=== PATIENT | male | born 1935 | race Caucasian/White ===

== ENCOUNTER → 2017-01-26 | Outpatient (CLI) | payer MEDICARE, BC ==
[2015-11-15 06:42] VITALS: BP 115/64
[~2017-01-26] MED LIST: ALEVE 220MG220 MG PO; ALLOPURINOL100 MG PO; BACTRIM DS 8001 TAB PO; CETIRIZINE PO; CHILDREN'S ASPI81 M1 PO; COLACE 100100 MG/CAP PO; CRESTOR20 MG PO; DIABETA2.5 MG PO; DURAGESIC50 MCG/PAT TD; EYE VITAMIN-MI1 EACH PO; FENTANYL 75MCG TP; FLOMAX 0.40.4 MG/CAP PO; LEXAPRO20 M1 PO; MIRALAX PA17 GM/Dose PO; MIRALAX17 GM PO; MS CONTIN 115 MG/TAB PO; MS CONTIN 330 MG/TAB PO; NAPROSYN PO; NORCO 325 MG-51 TA1 PO; OXYCODONE PO; PLAVIX 75MG TAB75 MG PO; TYLENOL 325MG325 MG PO
== END ==
LOC: LAB 14:00
DX: E11.9 Type 2 diabetes mellitus without complications (principal); E78.2 Mixed hyperlipidemia; Z87.39 Personal history of other diseases of the musculoskeletal system and connective tissue

== ENCOUNTER 2017-04-04 20:41 | Emergency (ER) | payer MEDICARE, BC ==
[~2017-04-04] VITALS: Ht 172.7 cm; Wt 95.0 kg
[2017-04-04] MEDS ORDERED: NORCO 325 MG-7.1 TA1 PO (23:29)
[2017-04-04] MEDS ORDERED: CYCLOBENZAPRINE10 M1 PO (23:29)
[2017-04-04 23:56] VITALS: BP 159/89
== END 2017-04-04 23:56 | disposition home or self-care (01) ==
LOC: ED 20:41
DX: M48.56XA Collapsed vertebra, not elsewhere classified, lumbar region, initial encounter for fracture (principal); M48.54XA Collapsed vertebra, not elsewhere classified, thoracic region, initial encounter for fracture; E11.9 Type 2 diabetes mellitus without complications; M10.9 Gout, unspecified; I69.954 Hemiplegia and hemiparesis following unspecified cerebrovascular disease affecting left non-dominant side; M48.061 Spinal stenosis, lumbar region without neurogenic claudication; G83.4 Cauda equina syndrome; G89.29 Other chronic pain
CPT/HCPCS: J1170; J2360; J2405

== ENCOUNTER → 2017-12-01 | Outpatient (CLI) | payer MEDICARE, BC ==
[~2017-12-01] MED LIST changes: +CYCLOBENZAPRINE10 M1 PO; +NORCO 325 MG-7.1 TA1 PO
[2017-12-01 08:20] LABS: URINE APPEARANCE HAZY; URINE COLOR YELLOW
[2017-12-01 08:21] LABS: URINE BILIRUBIN NEGATIVE (NEGATIVE); URINE BLOOD NEGATIVE (NEGATIVE); URINE GLUCOSE NEGATIVE (NEGATIVE); URINE KETONE NEGATIVE (NEGATIVE); URINE LEUKOCYTE ESTERASE NEGATIVE (NEGATIVE); URINE MUCUS PRESENT (NOT PRESENT); URINE NITRATE NEGATIVE (NEGATIVE); URINE PROTEIN(semi-quant) NEGATIVE (NEGATIVE); URINE UROBILINOGEN NORMAL (NORMAL)
== END ==
LOC: LAB 11-30 16:04
PROVIDERS: Nurse Practitioner Family
DX: R10.9 Unspecified abdominal pain (principal); N39.0 Urinary tract infection, site not specified

== ENCOUNTER → 2017-12-14 | Outpatient (CLI) | payer MEDICARE, BC ==
[2017-12-14 16:49] LABS: BUN/CREATININE RATIO 22.3 (6.0-26.0); CALCIUM 9.6 mg/dL (8.4-10.2); POTASSIUM 4.1 mmol/L (3.6-5.0)
== END ==
LOC: LAB 16:12
PROVIDERS: Nurse Practitioner Family
DX: E11.9 Type 2 diabetes mellitus without complications (principal); M54.5 Low back pain

== ENCOUNTER → 2018-03-31 | Outpatient (CLI) | payer MEDICARE, BC ==
[2018-03-31 11:58] LABS: BASO # 0.1 (0.02-0.10); EOS # 0.2 (0.04-0.40); HEMATOCRIT 46.7 % (42.0-52.0); HEMOGLOBIN 15.6 g/dL (13.5-18.0); MEAN CELL VOLUME 91 fl (78-100); MEAN CORPUSCULAR HEMOGLOBIN 30 pg (27-31); MEAN CORPUSCULAR HGB CONC 33 g/dL (33-37); MEAN PLATELET VOLUME 9.7 fl (7.4-10.4); MONO # 0.4 (0.20-0.80); NEU # 3.7 (1.40-6.50); PLATELET COUNT 215 K/mm3 (130-400); RED BLOOD COUNT 5.14 M/mm3 (4.20-5.60); RED CELL DISTRIBUTION WIDTH 12.8 % (11.5-14.5); WHITE BLOOD COUNT 5.5 K/mm3 (4.8-10.8)
[2018-03-31 12:33] LABS: ALBUMIN 4.5 g/dL (3.5-5.0); CALCIUM 9.3 mg/dL (8.4-10.2); POTASSIUM 4.3 mmol/L (3.6-5.0); TOTAL BILIRUBIN 0.8 mg/dL (0.2-1.3); TOTAL PROTEIN 7.3 g/dL (6.3-8.2)
== END ==
LOC: LAB 11:26
PROVIDERS: Physician Assistant
DX: Z12.5 Encounter for screening for malignant neoplasm of prostate (principal); Z00.00 Encounter for general adult medical examination without abnormal findings; E11.9 Type 2 diabetes mellitus without complications; I63.9 Cerebral infarction, unspecified; M19.90 Unspecified osteoarthritis, unspecified site; M10.9 Gout, unspecified

== ENCOUNTER 2019-02-24 08:11 | Observation (INO) | payer MEDICARE, BC ==
[~2019-02-24] VITALS: Ht 175.3 cm; Wt 94.1 kg
[2019-02-24 08:37] LABS: BASO # 0.1 (0.02-0.10); EOS # 0.2 (0.04-0.40); EOS % 3.8 % (0.0-4.0); HEMATOCRIT 43.7 % (42.0-52.0); HEMOGLOBIN 14.5 g/dL (13.5-18.0); MEAN CELL VOLUME 92 fl (78-100); MEAN CORPUSCULAR HEMOGLOBIN 30 pg (27-31); MEAN CORPUSCULAR HGB CONC 33 g/dL (33-37); MEAN PLATELET VOLUME 9.7 fl (7.4-10.4); MONO # 0.4 (0.20-0.80); NEU # 3.6 (1.40-6.50); PLATELET COUNT 190 K/mm3 (130-400); RED BLOOD COUNT 4.77 M/mm3 (4.20-5.60); RED CELL DISTRIBUTION WIDTH 12.9 % (11.5-14.5); WHITE BLOOD COUNT 5.2 K/mm3 (4.8-10.8)
[2019-02-24 08:43] LABS: ALBUMIN 3.9 g/dL (3.4-4.8); POTASSIUM 3.8 mmol/L (3.5-5.1)
[2019-02-24 08:45] LABS: CALCIUM 9.6 mg/dL (8.3-10.5)
[2019-02-24 08:46] LABS: TOTAL PROTEIN 6.7 g/dL (6.2-8.1)
[2019-02-24 08:48] LABS: TOTAL BILIRUBIN 0.8 mg/dL (0.2-1.2)
[2019-02-24] MEDS ORDERED: MECLIZINE PO (09:57)
[2019-02-24 11:35] LABS: URINE APPEARANCE CLEAR; URINE COLOR YELLOW
[2019-02-24 11:36] LABS: URINE BILIRUBIN NEGATIVE (NEGATIVE); URINE BLOOD NEGATIVE (NEGATIVE); URINE GLUCOSE NEGATIVE (NEGATIVE); URINE KETONE NEGATIVE (NEGATIVE); URINE LEUKOCYTE ESTERASE NEGATIVE (NEGATIVE); URINE MUCUS PRESENT (NOT PRESENT); URINE NITRATE NEGATIVE (NEGATIVE); URINE PROTEIN(semi-quant) TRACE mg/dL (NEGATIVE); URINE UROBILINOGEN NORMAL (NORMAL)
[2019-02-24] MEDS ORDERED: OCUVITE ADULT1 EAC1 PO (13:31)
[2019-02-24 13:59] VITALS: BP 107/79
[2019-02-24 15:33] VITALS: BP 119/71
[2019-02-24 19:19] VITALS: BP 118/79
[2019-02-24 23:00] VITALS: BP 111/72
[2019-02-25 02:58] VITALS: BP 116/68
[2019-02-25 06:21] VITALS: BP 121/78
== END 2019-02-25 08:51 | disposition other institution (70) ==
LOC: ED 08:11 → MED/SURG 11:31
PROVIDERS: ADMIT Nurse Practitioner Primary Care
DX: S22.42XA Multiple fractures of ribs, left side, initial encounter for closed fracture (principal); M10.9 Gout, unspecified; E11.9 Type 2 diabetes mellitus without complications; I69.954 Hemiplegia and hemiparesis following unspecified cerebrovascular disease affecting left non-dominant side; M19.90 Unspecified osteoarthritis, unspecified site; Z79.02 Long term (current) use of antithrombotics/antiplatelets; Z87.891 Personal history of nicotine dependence; Z88.0 Allergy status to penicillin; W19.XXXA Unspecified fall, initial encounter
CPT/HCPCS: G0378; J1885; J2270

== ENCOUNTER 2019-02-25 08:25 | Inpatient (IN) | payer MEDICARE, BC ==
[~2019-02-25 08:25] MED LIST changes: +MECLIZINE PO; +OCUVITE ADULT1 EAC1 PO
[2019-02-25 11:28] VITALS: BP 139/71
[2019-02-25 11:31] VITALS: BP 129/71
[2019-02-25 15:00] VITALS: BP 122/87
[2019-02-25 19:13] VITALS: BP 134/70
[2019-02-25 23:07] VITALS: BP 117/42
[2019-02-25 23:08] VITALS: BP 117/42
[2019-02-26] VITALS (7 sets, daily range): BP systolic 109–133; BP diastolic 61–786
[2019-02-27 02:52] VITALS: BP 135/79
[2019-02-27 06:20] VITALS: BP 130/77
[2019-02-27 11:30] VITALS: BP 120/70
[2019-02-27 15:15] VITALS: BP 128/76
[2019-02-27 18:52] VITALS: BP 116/66
[2019-02-27 23:46] VITALS: BP 154/79
[2019-02-28 03:25] VITALS: BP 132/86
[2019-02-28 06:03] VITALS: BP 113/63
[2019-02-28 06:49] LABS: BASO # 0.1 (0.02-0.10); EOS # 0.3 (0.04-0.40); HEMATOCRIT 36.9 % (42.0-52.0); HEMOGLOBIN 12.4 g/dL (13.5-18.0); LYMPH# 1.1 (1.50-4.00); MEAN CELL VOLUME 92 fl (78-100); MEAN CORPUSCULAR HEMOGLOBIN 31 pg (27-31); MEAN CORPUSCULAR HGB CONC 34 g/dL (33-37); MEAN PLATELET VOLUME 10.2 fl (7.4-10.4); MONO # 0.5 (0.20-0.80); NEU # 2.8 (1.40-6.50); PLATELET COUNT 185 K/mm3 (130-400); RED CELL DISTRIBUTION WIDTH 12.5 % (11.5-14.5); WHITE BLOOD COUNT 4.7 K/mm3 (4.8-10.8)
[2019-02-28 07:03] LABS: ALBUMIN 3.1 g/dL (3.4-4.8); POTASSIUM 4.3 mmol/L (3.5-5.1)
[2019-02-28 07:05] LABS: CALCIUM 8.5 mg/dL (8.3-10.5)
[2019-02-28 07:06] LABS: TOTAL PROTEIN 5.4 g/dL (6.2-8.1)
[2019-02-28 07:08] LABS: TOTAL BILIRUBIN 0.5 mg/dL (0.2-1.2)
[2019-02-28 07:13] LABS: EOS % 5.6 % (0.0-4.0)
[2019-02-28 11:00] VITALS: BP 114/63
[2019-02-28] MEDS ORDERED: FLOMAX0.4 MG PO (11:54)
[2019-02-28] MEDS ORDERED: BENADRYL PO (11:54)
[2019-02-28] MEDS ORDERED: DICLOFENAC SOD100 GM TP (11:54)
[2019-02-28] MEDS ORDERED: MORPHINE 10M10 MG/ML IV (11:55)
[2019-02-28] MEDS ORDERED: HEALTHYLAX17 GM/Dose PO (11:56)
[2019-02-28] MEDS ORDERED: Lidocaine 4% Patch TP (11:56)
[2019-02-28] MEDS ORDERED: SENNA-TIME S 501 TAB PO (11:56)
== END 2019-02-28 12:30 | disposition swing bed (61) | DRG 185 ==
LOC: MED/SURG 08:25
PROVIDERS: Family Medicine; ADMIT Physician Assistant
DX: S22.42XA Multiple fractures of ribs, left side, initial encounter for closed fracture (principal); W18.30XA Fall on same level, unspecified, initial encounter; Y92.009 Unspecified place in unspecified non-institutional (private) residence as the place of occurrence of the external cause; M10.9 Gout, unspecified; E11.9 Type 2 diabetes mellitus without complications; I69.234 Monoplegia of upper limb following other nontraumatic intracranial hemorrhage affecting left non-dominant side; M19.90 Unspecified osteoarthritis, unspecified site; F03.90 Unspecified dementia, unspecified severity, without behavioral disturbance, psychotic disturbance, mood disturbance, and anxiety; E78.5 Hyperlipidemia, unspecified; R53.81 Other malaise; Z87.891 Personal history of nicotine dependence; Z88.0 Allergy status to penicillin
CPT/HCPCS: J2270; J7030; J7070

== ENCOUNTER 2019-02-28 01:55 | Inpatient (IN) | payer MEDICARE, BC ==
[~2019-02-28] VITALS: Ht 170.2 cm; Wt 99.5 kg
[2019-02-28] MEDS ORDERED: BENADRYL PO (11:54)
[2019-02-28] MEDS ORDERED: DICLOFENAC SOD100 GM TP (11:54)
[2019-02-28] MEDS ORDERED: FLOMAX0.4 MG PO (11:54)
[2019-02-28] MEDS ORDERED: MORPHINE 10M10 MG/ML IV (11:55)
[2019-02-28] MEDS ORDERED: HEALTHYLAX17 GM/Dose PO (11:56)
[2019-02-28] MEDS ORDERED: Lidocaine 4% Patch TP (11:56)
[2019-02-28] MEDS ORDERED: SENNA-TIME S 501 TAB PO (11:56)
[2019-02-28 15:58] VITALS: BP 114/74
[2019-02-28 17:54] LABS: BASO # 0.1 (0.02-0.10); EOS # 0.2 (0.04-0.40); EOS % 4.3 % (0.0-4.0); HEMATOCRIT 41.2 % (42.0-52.0); HEMOGLOBIN 13.6 g/dL (13.5-18.0); LYMPH# 1.2 (1.50-4.00); MEAN CELL VOLUME 92 fl (78-100); MEAN CORPUSCULAR HEMOGLOBIN 30 pg (27-31); MEAN CORPUSCULAR HGB CONC 33 g/dL (33-37); MEAN PLATELET VOLUME 10.1 fl (7.4-10.4); MONO # 0.5 (0.20-0.80); NEU # 3.3 (1.40-6.50); PLATELET COUNT 203 K/mm3 (130-400); RED BLOOD COUNT 4.49 M/mm3 (4.20-5.60); RED CELL DISTRIBUTION WIDTH 12.7 % (11.5-14.5); WHITE BLOOD COUNT 5.3 K/mm3 (4.8-10.8)
[2019-02-28 18:00] LABS: ALBUMIN 3.8 g/dL (3.4-4.8); POTASSIUM 3.5 mmol/L (3.5-5.1)
[2019-02-28 18:01] LABS: CALCIUM 9.4 mg/dL (8.3-10.5)
[2019-02-28 18:02] LABS: TOTAL PROTEIN 6.4 g/dL (6.2-8.1)
[2019-02-28 18:04] LABS: TOTAL BILIRUBIN 0.5 mg/dL (0.2-1.2)
[2019-02-28 19:15] VITALS: BP 157/89
[2019-03-01 06:06] VITALS: BP 144/82
[2019-03-01 18:30] VITALS: BP 128/74
[2019-03-02 05:53] VITALS: BP 146/79
[2019-03-02 18:18] VITALS: BP 144/73
[2019-03-03 05:50] VITALS: BP 164/83
[2019-03-03 18:35] VITALS: BP 97/59
[2019-03-04 05:49] VITALS: BP 135/79
[2019-03-04 18:43] VITALS: BP 125/74
[2019-03-05 06:11] VITALS: BP 131/75
[2019-03-05 18:00] VITALS: BP 107/69
[2019-03-06 05:26] VITALS: BP 142/66
[2019-03-06 18:09] VITALS: BP 114/72
[2019-03-07 06:01] VITALS: BP 129/82
[2019-03-07 18:00] VITALS: BP 122/72
[2019-03-08 05:57] VITALS: BP 123/75
[2019-03-08 17:58] VITALS: BP 121/65
[2019-03-09 06:13] VITALS: BP 125/58
[2019-03-09] MEDS ORDERED: FLOMAX0.4 MG PO (11:27)
[2019-03-09] MEDS ORDERED: DICLOFENAC SOD100 GM TP (11:28)
== END 2019-03-09 14:26 | disposition home health service (06) | DRG 560 ==
LOC: MED/SURG 01:55
PROVIDERS: ADMIT Family Medicine
DX: S22.42XD Multiple fractures of ribs, left side, subsequent encounter for fracture with routine healing (principal); I69.359 Hemiplegia and hemiparesis following cerebral infarction affecting unspecified side; W19.XXXD Unspecified fall, subsequent encounter; R33.9 Retention of urine, unspecified; R53.81 Other malaise; G89.11 Acute pain due to trauma; E11.9 Type 2 diabetes mellitus without complications

== ENCOUNTER → 2019-03-30 | Outpatient (CLI) | payer MEDICARE, BC ==
[2019-03-09 06:13] VITALS: BP 125/58
[~2019-03-30] MED LIST changes: +BENADRYL PO; +DICLOFENAC SOD100 GM TP; +FLOMAX0.4 MG PO; +HEALTHYLAX17 GM/Dose PO; +Lidocaine 4% Patch TP; +MORPHINE 10M10 MG/ML IV; +SENNA-TIME S 501 TAB PO
[2019-03-30 11:03] LABS: BASO # 0.1 (0.02-0.10); EOS # 0.1 (0.04-0.40); EOS % 2.6 % (0.0-4.0); HEMATOCRIT 44.7 % (42.0-52.0); HEMOGLOBIN 14.8 g/dL (13.5-18.0); LYMPH# 0.8 (1.50-4.00); MEAN CELL VOLUME 91 fl (78-100); MEAN CORPUSCULAR HEMOGLOBIN 30 pg (27-31); MEAN CORPUSCULAR HGB CONC 33 g/dL (33-37); MEAN PLATELET VOLUME 9.6 fl (7.4-10.4); MONO # 0.4 (0.20-0.80); PLATELET COUNT 196 K/mm3 (130-400); RED BLOOD COUNT 4.92 M/mm3 (4.20-5.60); RED CELL DISTRIBUTION WIDTH 12.6 % (11.5-14.5); WHITE BLOOD COUNT 5.4 K/mm3 (4.8-10.8)
[2019-03-30 11:12] LABS: POTASSIUM 4.1 mmol/L (3.5-5.1)
[2019-03-30 11:13] LABS: ALBUMIN 4.1 g/dL (3.4-4.8)
[2019-03-30 11:14] LABS: CALCIUM 9.7 mg/dL (8.3-10.5)
[2019-03-30 11:17] LABS: TOTAL BILIRUBIN 0.6 mg/dL (0.2-1.2)
== END ==
LOC: LAB 10:43
PROVIDERS: Physician Assistant
DX: Z00.00 Encounter for general adult medical examination without abnormal findings (principal); Z12.5 Encounter for screening for malignant neoplasm of prostate; Z13.220 Encounter for screening for lipoid disorders; Z13.89 Encounter for screening for other disorder; E11.9 Type 2 diabetes mellitus without complications; I63.9 Cerebral infarction, unspecified; M19.90 Unspecified osteoarthritis, unspecified site; M10.9 Gout, unspecified

== ENCOUNTER 2019-06-19 20:10 | Observation (INO) | payer MEDICARE, BC ==
[~2019-06-19] VITALS: Ht 167.6 cm; Wt 90.8 kg
[~2019-06-19 20:10] MED LIST changes: -ALLOPURINOL100 MG PO; +ZYLOPRIM 100MG100 MG PO
[2019-06-19 22:40] VITALS: BP 156/81
[2019-06-19 22:43] VITALS: BP 156/81
[2019-06-19] MEDS ORDERED: DIABETA 2.5MG2.5 MG PO (23:32)
[2019-06-20 01:36] VITALS: BP 139/77
[2019-06-20 05:38] VITALS: BP 164/90
[2019-06-20 06:36] LABS: BASO # 0.1 (0.02-0.10); EOS # 0.3 (0.04-0.40); HEMATOCRIT 39.9 % (42.0-52.0); HEMOGLOBIN 13.3 g/dL (13.5-18.0); LYMPH# 1.2 (1.50-4.00); MEAN CELL VOLUME 91 fl (78-100); MEAN CORPUSCULAR HEMOGLOBIN 30 pg (27-31); MEAN CORPUSCULAR HGB CONC 33 g/dL (33-37); MEAN PLATELET VOLUME 9.4 fl (7.4-10.4); MONO # 0.5 (0.20-0.80); NEU # 3.4 (1.40-6.50); PLATELET COUNT 188 K/mm3 (130-400); RED CELL DISTRIBUTION WIDTH 12.9 % (11.5-14.5); WHITE BLOOD COUNT 5.6 K/mm3 (4.8-10.8)
[2019-06-20 06:51] LABS: URINE APPEARANCE CLEAR; URINE COLOR YELLOW
[2019-06-20 06:52] LABS: URINE BILIRUBIN NEGATIVE (NEGATIVE); URINE BLOOD NEGATIVE (NEGATIVE); URINE GLUCOSE NEGATIVE (NEGATIVE); URINE KETONE NEGATIVE (NEGATIVE); URINE LEUKOCYTE ESTERASE NEGATIVE (NEGATIVE); URINE MUCUS PRESENT (NOT PRESENT); URINE NITRATE NEGATIVE (NEGATIVE); URINE PROTEIN(semi-quant) NEGATIVE (NEGATIVE); URINE UROBILINOGEN NORMAL (NORMAL); URINE WBC 0-1 /hpf (0-3)
[2019-06-20 07:05] LABS: POTASSIUM 3.9 mmol/L (3.5-5.1)
[2019-06-20 09:48] VITALS: BP 136/84
[2019-06-20] MEDS ORDERED: FENTANYL1 EAC3 TD (13:13)
[2019-06-20] MEDS ORDERED: NORCO 325 MG-51 TA1 PO (13:14)
[2019-06-20 14:02] VITALS: BP 129/79
== END 2019-06-20 15:05 | disposition home or self-care (01) ==
LOC: ED 20:10 → MED/SURG 21:58
PROVIDERS: ADMIT Nurse Practitioner Primary Care
DX: M54.5 Low back pain (principal); G89.29 Other chronic pain; R53.1 Weakness; W19.XXXA Unspecified fall, initial encounter; R26.2 Difficulty in walking, not elsewhere classified; E11.9 Type 2 diabetes mellitus without complications; M10.9 Gout, unspecified; Z87.891 Personal history of nicotine dependence; Z88.0 Allergy status to penicillin; F03.90 Unspecified dementia, unspecified severity, without behavioral disturbance, psychotic disturbance, mood disturbance, and anxiety; I69.398 Other sequelae of cerebral infarction; E78.5 Hyperlipidemia, unspecified; Z79.02 Long term (current) use of antithrombotics/antiplatelets; Z79.899 Other long term (current) drug therapy; E66.9 Obesity, unspecified
CPT/HCPCS: G0378; J1650; J2270

== ENCOUNTER → 2020-04-04 | Outpatient (CLI) | payer MEDICARE, BC ==
[~2020-04-04] MED LIST changes: +DIABETA 2.5MG2.5 MG PO; +FENTANYL1 EAC3 TD
[2020-04-04 14:11] LABS: BASO # 0.1 (0.02-0.10); EOS # 0.2 (0.04-0.40); EOS % 3.1 % (0.0-4.0); HEMATOCRIT 45.2 % (42.0-52.0); HEMOGLOBIN 15.3 g/dL (13.5-18.0); LYMPH# 0.8 (1.50-4.00); MEAN CELL VOLUME 91 fl (78-100); MEAN CORPUSCULAR HEMOGLOBIN 31 pg (27-31); MEAN CORPUSCULAR HGB CONC 34 g/dL (33-37); MONO # 0.5 (0.20-0.80); NEU # 4.6 (1.40-6.50); PLATELET COUNT 190 K/mm3 (130-400); RED BLOOD COUNT 4.95 M/mm3 (4.20-5.60); RED CELL DISTRIBUTION WIDTH 12.5 % (11.5-14.5); WHITE BLOOD COUNT 6.2 K/mm3 (4.8-10.8)
[2020-04-04 14:17] LABS: ALBUMIN 4.2 g/dL (3.4-4.8); POTASSIUM 4.1 mmol/L (3.5-5.1)
[2020-04-04 14:18] LABS: CALCIUM 9.3 mg/dL (8.3-10.5)
[2020-04-04 14:20] LABS: TOTAL PROTEIN 6.7 g/dL (6.2-8.1)
[2020-04-04 14:22] LABS: TOTAL BILIRUBIN 0.6 mg/dL (0.2-1.2)
== END ==
LOC: LAB 13:41
PROVIDERS: Physician Assistant
DX: Z00.00 Encounter for general adult medical examination without abnormal findings (principal); Z12.5 Encounter for screening for malignant neoplasm of prostate; Z13.29 Encounter for screening for other suspected endocrine disorder; E11.9 Type 2 diabetes mellitus without complications; E78.5 Hyperlipidemia, unspecified; M19.90 Unspecified osteoarthritis, unspecified site; I63.9 Cerebral infarction, unspecified; M10.9 Gout, unspecified

== ENCOUNTER → 2021-04-11 | Outpatient (CLI) | payer MEDICARE, BC ==
[2021-04-11 14:52] LABS: BASO # 0.08 K/mm3 (0.02-0.10); EOS # 0.17 K/mm3 (0.04-0.40); EOS % 2.9 % (0.0-4.0); HEMATOCRIT 44.8 % (42.0-52.0); HEMOGLOBIN 14.8 g/dL (13.5-18.0); LYMPH# 0.93 K/mm3 (1.50-4.00); MEAN CELL VOLUME 93 fl (78-100); MEAN CORPUSCULAR HEMOGLOBIN 31 pg (27-31); MEAN CORPUSCULAR HGB CONC 33 g/dL (33-37); MEAN PLATELET VOLUME 9.4 fl (7.4-10.4); MONO # 0.49 K/mm3 (0.20-0.80); PLATELET COUNT 181 K/mm3 (130-400); RED BLOOD COUNT 4.82 M/mm3 (4.20-5.60); RED CELL DISTRIBUTION WIDTH 12.1 % (11.5-14.5); WHITE BLOOD COUNT 5.8 K/mm3 (4.8-10.8)
[2021-04-11 15:00] LABS: ALBUMIN 3.9 g/dL (3.4-4.8); POTASSIUM 4.1 mmol/L (3.5-5.1)
[2021-04-11 15:03] LABS: TOTAL PROTEIN 6.8 g/dL (6.2-8.1)
[2021-04-11 15:05] LABS: TOTAL BILIRUBIN 0.6 mg/dL (0.2-1.2)
== END ==
LOC: LAB 14:28
PROVIDERS: Physician Assistant
DX: Z00.00 Encounter for general adult medical examination without abnormal findings (principal); Z12.5 Encounter for screening for malignant neoplasm of prostate; E11.9 Type 2 diabetes mellitus without complications; E78.2 Mixed hyperlipidemia; Z13.29 Encounter for screening for other suspected endocrine disorder

== ENCOUNTER → 2022-04-30 | Outpatient (CLI) | payer MEDICARE, BC ==
[2022-04-30 13:16] LABS: POTASSIUM 4.2 mmol/L (3.5-5.1)
[2022-04-30 13:17] LABS: CALCIUM 9.8 mg/dL (8.3-10.5)
[2022-04-30 13:18] LABS: TOTAL PROTEIN 6.9 g/dL (6.2-8.1)
[2022-04-30 13:20] LABS: TOTAL BILIRUBIN 0.7 mg/dL (0.2-1.2)
[2022-04-30 13:38] LABS: BASO # 0.05 K/mm3 (0.02-0.10); EOS # 0.22 K/mm3 (0.04-0.40); EOS % 3.5 % (0.0-4.0); HEMATOCRIT 44.4 % (42.0-52.0); HEMOGLOBIN 14.7 g/dL (13.5-18.0); LYMPH# 1.23 K/mm3 (1.50-4.00); MEAN CELL VOLUME 94 fl (78-100); MEAN CORPUSCULAR HEMOGLOBIN 31 pg (27-31); MEAN CORPUSCULAR HGB CONC 33 g/dL (33-37); MEAN PLATELET VOLUME 10.6 fl (7.4-10.4); MONO # 0.48 K/mm3 (0.20-0.80); NEU # 4.28 K/mm3 (1.40-6.50); PLATELET COUNT 187 K/mm3 (130-400); RED BLOOD COUNT 4.75 M/mm3 (4.20-5.60); RED CELL DISTRIBUTION WIDTH 12.2 % (11.5-14.5); WHITE BLOOD COUNT 6.3 K/mm3 (4.8-10.8)
== END ==
LOC: LAB 11:49
PROVIDERS: Physician Assistant
DX: Z00.00 Encounter for general adult medical examination without abnormal findings (principal); I63.9 Cerebral infarction, unspecified; M19.90 Unspecified osteoarthritis, unspecified site; M10.9 Gout, unspecified; Z13.29 Encounter for screening for other suspected endocrine disorder; E78.2 Mixed hyperlipidemia; E11.9 Type 2 diabetes mellitus without complications

== ENCOUNTER 2022-05-26 01:26 | Emergency (ER) | payer MEDICARE, BC ==
[~2022-05-26] VITALS: Wt 87.3 kg
[2022-05-26 01:36] VITALS: BP 123/70
[2022-05-26 02:32] LABS: BASO # 0.06 K/mm3 (0.02-0.10); EOS # 0.32 K/mm3 (0.04-0.40); EOS % 4.6 % (0.0-4.0); HEMATOCRIT 38.3 % (42.0-52.0); HEMOGLOBIN 13.1 g/dL (13.5-18.0); LYMPH# 0.62 K/mm3 (1.50-4.00); MEAN CELL VOLUME 95 fl (78-100); MEAN CORPUSCULAR HEMOGLOBIN 32 pg (27-31); MEAN CORPUSCULAR HGB CONC 34 g/dL (33-37); MEAN PLATELET VOLUME 9.5 fl (7.4-10.4); MONO # 0.68 K/mm3 (0.20-0.80); NEU # 5.28 K/mm3 (1.40-6.50); PLATELET COUNT 175 K/mm3 (130-400); RED BLOOD COUNT 4.05 M/mm3 (4.20-5.60); RED CELL DISTRIBUTION WIDTH 12.3 % (11.5-14.5)
[2022-05-26 02:40] LABS: ALBUMIN 3.5 g/dL (3.4-4.8)
[2022-05-26 02:41] LABS: POTASSIUM 3.5 mmol/L (3.5-5.1)
[2022-05-26 02:42] LABS: CALCIUM 8.9 mg/dL (8.3-10.5)
[2022-05-26 02:43] LABS: TOTAL PROTEIN 6.3 g/dL (6.2-8.1)
[2022-05-26 02:45] LABS: TOTAL BILIRUBIN 1.1 mg/dL (0.2-1.2)
[2022-05-26 05:39] LABS: URINE APPEARANCE CLEAR; URINE COLOR YELLOW
[2022-05-26 05:40] LABS: URINE BILIRUBIN NEGATIVE (NEGATIVE); URINE BLOOD NEGATIVE (NEGATIVE); URINE GLUCOSE NEGATIVE (NEGATIVE); URINE KETONE NEGATIVE (NEGATIVE); URINE LEUKOCYTE ESTERASE NEGATIVE (NEGATIVE); URINE MUCUS PRESENT (NOT PRESENT); URINE NITRATE NEGATIVE (NEGATIVE); URINE PROTEIN(semi-quant) TRACE (NEGATIVE); URINE UROBILINOGEN 4 mg/dL (NORMAL); URINE WBC 0-1 /hpf (0-3)
== END 2022-05-26 13:25 | disposition home or self-care (01) ==
LOC: ED 01:26
PROVIDERS: Family Medicine
DX: M25.552 Pain in left hip (principal); M25.562 Pain in left knee; R53.81 Other malaise; W01.0XXA Fall on same level from slipping, tripping and stumbling without subsequent striking against object, initial encounter; Y92.009 Unspecified place in unspecified non-institutional (private) residence as the place of occurrence of the external cause

== ENCOUNTER → 2023-10-01 | Outpatient (REF) | payer MEDICARE, BC ==
[~2023-10-01] MED LIST changes: +ATORVASTATIN CA10 MG PO; +BENZONATATE100 M2 PO; +CEFDINIR300 MG PO; +DOCUSATE SODIU100 M3 PO; +DOCUSATE SODIUM1 TA2 PO; +DULCOLAX S10 MG/SUPP RC; +GOOD NEIGH1200 MG/15 PO; +GOOD NEIGHBOR500 M2 PO; +IPRATROPIUM BROM3 M1 IH; +TYLENOL325 M1 PO; +ZITHROMAX TRI-500 MG PO
[2023-10-01 05:26] LABS: CALCIUM 9.3 mg/dL (8.3-10.5)
== END ==
LOC: LAB 04:48
PROVIDERS: Physician Assistant
DX: E87.1 Hypo-osmolality and hyponatremia (principal)

== ENCOUNTER → 2023-12-18 | Outpatient (CLI) | payer MEDICARE, BC ==
[2023-12-18 14:49] LABS: BASO # 0.06 K/mm3 (0.02-0.10); EOS # 0.24 K/mm3 (0.04-0.40); EOS % 3.9 % (0.0-4.0); HEMATOCRIT 45.2 % (42.0-52.0); HEMOGLOBIN 14.4 g/dL (13.5-18.0); LYMPH# 1.17 K/mm3 (1.50-4.00); MEAN CELL VOLUME 96 fl (78-100); MEAN CORPUSCULAR HEMOGLOBIN 31 pg (27-31); MEAN CORPUSCULAR HGB CONC 32 g/dL (33-37); MEAN PLATELET VOLUME 10.4 fl (7.4-10.4); NEU # 4.11 K/mm3 (1.40-6.50); PLATELET COUNT 180 K/mm3 (130-400); RED BLOOD COUNT 4.72 M/mm3 (4.20-5.60); RED CELL DISTRIBUTION WIDTH 13.6 % (11.5-14.5); WHITE BLOOD COUNT 6.1 K/mm3 (4.8-10.8)
[2023-12-18 14:58] LABS: ALBUMIN 3.7 g/dL (3.4-4.8)
[2023-12-18 15:00] LABS: CALCIUM 9.8 mg/dL (8.3-10.5)
[2023-12-18 15:01] LABS: TOTAL PROTEIN 6.8 g/dL (6.2-8.1)
[2023-12-18 15:03] LABS: TOTAL BILIRUBIN 0.4 mg/dL (0.2-1.2)
== END ==
LOC: LAB 14:23
PROVIDERS: Physician Assistant
DX: E87.1 Hypo-osmolality and hyponatremia (principal); F03.92 Unspecified dementia, unspecified severity, with psychotic disturbance

== ENCOUNTER → 2024-01-19 | Outpatient (REF) | payer MEDICARE, BC | LOC: LAB 10:33 | DX: E11.9 Type 2 diabetes mellitus without complications (principal) ==

== ENCOUNTER → 2024-04-11 | Outpatient (REF) | payer MEDICARE, BC ==
[2024-04-11 06:39] LABS: BASO # 0.03 K/mm3 (0.02-0.10); EOS # 0.24 K/mm3 (0.04-0.40); EOS % 4.3 % (0.0-4.0); HEMATOCRIT 45.9 % (42.0-52.0); HEMOGLOBIN 14.7 g/dL (13.5-18.0); MEAN CELL VOLUME 102 fl (78-100); MEAN CORPUSCULAR HEMOGLOBIN 33 pg (27-31); MEAN CORPUSCULAR HGB CONC 32 g/dL (33-37); MEAN PLATELET VOLUME 10.6 fl (7.4-10.4); MONO # 0.66 K/mm3 (0.20-0.80); NEU # 2.83 K/mm3 (1.40-6.50); PLATELET COUNT 161 K/mm3 (130-400); RED BLOOD COUNT 4.49 M/mm3 (4.20-5.60); WHITE BLOOD COUNT 5.6 K/mm3 (4.8-10.8)
[2024-04-11 06:42] LABS: ALBUMIN 3.6 g/dL (3.4-4.8)
[2024-04-11 06:43] LABS: CALCIUM 9.7 mg/dL (8.3-10.5)
[2024-04-11 06:45] LABS: TOTAL PROTEIN 6.8 g/dL (6.2-8.1)
[2024-04-11 06:46] LABS: TOTAL BILIRUBIN 0.6 mg/dL (0.2-1.2)
== END ==
LOC: LAB 06:17
PROVIDERS: Nurse Practitioner Family
DX: F39 Unspecified mood [affective] disorder (principal); E87.1 Hypo-osmolality and hyponatremia

== ENCOUNTER → 2024-05-17 | Outpatient (REF) | payer MEDICARE, BC ==
[2024-05-17 18:11] LABS: ALBUMIN 3.5 g/dL (3.4-4.8)
[2024-05-17 18:13] LABS: CALCIUM 9.6 mg/dL (8.3-10.5)
[2024-05-17 18:14] LABS: TOTAL PROTEIN 6.6 g/dL (6.2-8.1)
[2024-05-17 18:16] LABS: TOTAL BILIRUBIN 0.5 mg/dL (0.2-1.2)
== END ==
LOC: LAB 17:43
PROVIDERS: Physician Assistant
DX: F39 Unspecified mood [affective] disorder (principal); F01.518 Vascular dementia, unspecified severity, with other behavioral disturbance

== ENCOUNTER 2024-06-20 15:36 | Emergency (ER) | payer MEDICARE, BC ==
[2024-06-20 16:23] LABS: BASO # 0.01 K/mm3 (0.02-0.10); EOS # 0.01 K/mm3 (0.04-0.40); EOS % 0.1 % (0.0-4.0); HEMATOCRIT 43.8 % (42.0-52.0); HEMOGLOBIN 13.2 g/dL (13.5-18.0); LYMPH# 1.18 K/mm3 (1.50-4.00); MEAN CELL VOLUME 107 fl (78-100); MEAN CORPUSCULAR HEMOGLOBIN 32 pg (27-31); MEAN CORPUSCULAR HGB CONC 30 g/dL (33-37); MEAN PLATELET VOLUME 10.4 fl (7.4-10.4); MONO # 0.74 K/mm3 (0.20-0.80); NEU # 13.89 K/mm3 (1.40-6.50); PLATELET COUNT 315 K/mm3 (130-400); RED CELL DISTRIBUTION WIDTH 13.3 % (11.5-14.5); WHITE BLOOD COUNT 15.9 K/mm3 (4.8-10.8)
[2024-06-20 16:32] LABS: ALBUMIN 3.3 g/dL (3.4-4.8)
[2024-06-20 16:33] LABS: CALCIUM 10.1 mg/dL (8.3-10.5)
[2024-06-20 16:34] LABS: TOTAL PROTEIN 7.4 g/dL (6.2-8.1)
[2024-06-20 16:36] LABS: TOTAL BILIRUBIN 1.3 mg/dL (0.2-1.2)
[2024-06-20 16:50] LABS: D-DIMER 2.12 mg/L FEU (0.15-0.50)
[2024-06-20 16:55] LABS: TROPONIN-I 0.034 ng/mL (0.00-0.033)
[2024-06-20] MEDS ORDERED: Iohexol 350 - 100 ML VIAL IV ONE (16:58)
[2024-06-20] MEDS ORDERED: NS 1,000 ML IV SCH (17:00)
[2024-06-20 17:57] LABS: URINE APPEARANCE TURBID (CLEAR); URINE COLOR BROWN (YELLOW)
[2024-06-20 18:00] LABS: PH-URINE 5.5 (5.0 - 8.0); URINE PROTEIN(semi-quant) 1+ (NEGATIVE)
[2024-06-20 18:01] LABS: URINE BILIRUBIN 1+ (NEGATIVE); URINE BLOOD 1+ (NEGATIVE); URINE GLUCOSE TRACE (NEGATIVE); URINE KETONE NEGATIVE (NEGATIVE); URINE LEUKOCYTE ESTERASE 3+ (NEGATIVE); URINE NITRATE NEGATIVE (NEGATIVE); URINE WBC >50 /hpf (0-3)
[2024-06-20] MEDS ORDERED: cefTRIAXone 1 G in Water For Injection,Sterile 10 ML IV ONE (18:15)
[2024-06-20 22:11] VITALS: BP 113/70
== END 2024-06-20 22:12 | disposition short-term general hospital (02) ==
LOC: ED 15:36
PROVIDERS: Physician Assistant
DX: N39.0 Urinary tract infection, site not specified (principal); N17.9 Acute kidney failure, unspecified; R79.89 Other specified abnormal findings of blood chemistry; R09.02 Hypoxemia
CPT/HCPCS: A4314; J0696; J7030; Q9967